=== PATIENT | male | born 1985 | race Caucasian/White ===

== ENCOUNTER 2020-11-19 11:32 | Outpatient (REF) | payer OTHER, SELFPAY ==
[2020-11-19 14:20] LABS: SARS COV2 PCR INHOUSE NEGATIVE (Negative)
== END 2020-11-19 11:33 | disposition home or self-care (01) ==
LOC: HO.LAB 11:32
PROVIDERS: Visit Provider Internal Medicine
DX: Z20.822 Contact with and (suspected) exposure to COVID-19 (principal)
CPT/HCPCS: C9803; U0003

== ENCOUNTER 2021-10-05 12:46 | Emergency (ER) | payer OTHER, SELFPAY ==
[2021-10-05 12:53] VITALS: BP 129/89; PULSE 85; RESP 18; TEMP 37; O2SAT 100; BMI 22.8
--- NOTE | 2021-10-05 13:40 | ED.EAR ---
HPI - Ear Problem General Chief complaint: Ear Problems Stated complaint: r ear pain Time Seen by Provider: 10/05/21 13:22 Source: patient Mode of arrival: ambulatory Limitations: no limitations History of Present Illness HPI Narrative: 36-year-old male presenting to the ED with complaints of right ear pain with associated nasal congestion/rhinorrhea. He reports that he feels like he has a sinus infection to the right Nare. He feels like his left Nare is normal. He reports that this started approximately 3 days ago. He reports that he was tested negative for COVID approximately 4 days ago and he is not concerned for COVID due to he has not been around anyone who has been sick and no one in his job has tested positive for COVID therefore he is declining any COVID testing today. He denies any fevers, chills, dizziness, headache, neck pain/stiffness, trouble swallowing or breathing, sore throat, loss of taste or smell, cough, chest pain or shortness of breath, nausea/vomiting/diarrhea constipation, abdominal pain, rashes, recent travel or sick contacts, recent antibiotic usage, recent swimming, recent illness, recent trauma, recent airplane flight or any other symptoms complaints or concerns at this time. MD Complaint: ear pain Location: right ear Duration: constant Severity: mild Relieving factors: nothing Exacerbating factors: nothing Discharge from ear: no Associated symptoms ear: rhinorrhea Treatment prior to arrival: none Related Data Previous Rx's Medication Instructions Recorded amoxicillin 875 mg-potassium 1 tab PO BID #10 tab 10/05/21 clavulanate 125 mg tablet Allergies Allergy/AdvReac Type Severity Reaction Status Date / Time pollen extracts [POLLEN] Allergy Unknown UNK Verified 10/05/21 12:53 Review of Systems Review of Systems: Constitutional : No Weight loss, No Fever, No Chills, No Night Sweats, No Fatigue, No Malaise ENT/Mouth : Positive nasal congestion/rhinorrhea and right-sided ear pain, No Hearing loss, No Sinus Pain, No Hoarseness, No Swallowing Difficulty Eyes: No Eye Pain, No Swelling, No Redness, No Foreign Body, No Discharge, No Vision Changes Cardiovascular : No Chest Pain, No SOB, No Dyspnea on Exertion, No Orthopnea, No Edema, No Palpitations Respiratory : No Cough, No Sputum, No Wheezing, No Smoke Exposure, No Dyspnea Gastrointestinal : No Nausea, No Vomiting, No Diarrhea, No Constipation, No abdominal Pain, No Hematochezia, No Melena Genitourinary : no irregular bleeding, No Dysuria, No Urinary Frequency, No Hematuria, No Urinary Incontinence, No Urgency, No Flank Pain, No Urinary Flow Changes, No Hesitancy Musculoskeletal : No joint pain, No Myalgias, No Joint Swelling Skin : No Skin Lesions, No rash Neuro : No Weakness, No Numbness, No Paresthesias, No Loss of Consciousness, No Dizziness, No Headache Psych : No Anxiety/Panic, No Depression, No SI/HI/AH/VH, No Social Issues, Heme/Lymph: No Bruising, No Bleeding,No Lymphadenopathy Endocrine : No Polyuria, No Polydipsia, No Temperature Intolerance Yes all other systems are reviewed and are negative [facility] Past Medical History Attestation statement: The following information was validated with the patient. Social History Social History Advance Directives: No Advance Directives Information Provided: Yes Physical Exam Vital Signs: Vital Signs: Last Vital Signs Temp 98.6 F 10/05/21 12:53 Pulse 85 10/05/21 12:53 Resp 18 10/05/21 12:53 BP 129/89 10/05/21 12:53 Pulse Ox 100 10/05/21 12:53 BMI result Body Mass Index 22.8 vital signs have been reviewed as normal and appeared to be correct. Blood pressure normal. Heart rate normal. Respiration rate normal. Temperature normal. Oxygen saturation normal. Appearance: Alert. Oriented X3. No acute distress. Head: Normal external exam. Normocephalic. Atraumatic. Eyes: PERRLA. EOMI. Conjunctiva and sclera normal. Eyelids normal. ENT: Right tympanic membrane mildly erythematous and bulging with loss of landmarks consistent with a mild otitis media. External ear canal bilaterally is within normal limits. Left tympanic membrane with some fluid and mild erythema and some bulging. No loss of Nare platt noted to the left tympanic membrane. Tympanic membranes bilaterally are intact not perforated. Posterior pharynx mildly erythematous although no exudate is noted. Otherwise the rest of the pharynx is within normal limits. Uvula midline. Moist mucous membranes. No trismus noted. No drooling noted. No muffled voice noted. Neck: Normal inspection. Neck supple. FROM. No adenopathy. Thyroid Normal. No meningeal signs. No neck mass noted. CVS: Normal heart rate and rhythm. Heart sound normal. Pulses normal throughout. No murmurs/rales/gallops. Respiratory: No respiratory distress. Painless inspiration. Breath sounds normal. No wheezes/rales/rhonchi noted. Chest nontender. No accessory muscle usage noted or decreased air movement noted. Back: Full range of motion noted. No rashes/lesion/induration/fluctuance or signs of infection noted. Skin: Skin warm and dry. Normal skin color. Normal skin turgor. No rashes/lesions/lacerations noted. Extremities: Extremities exhibit normal range of motion. Extremities nontender. Neuro: Oriented X 3. No motor deficit. No sensory deficit. Reflexes normal. Normal steady gait. No focal neuro deficits noted. CN's II-XII intact bilaterally? Vascular: + radial pulses/+ 2 distal pedal pulses/+2 dorsalis pedis b/l. Normal cap refill. No cyanosis noted to upper extremity nails and lower extremity toes nails. Course Course Course Narrative: 36-year-old male presenting to the ED with complaints of right ear pain with associated nasal congestion/rhinorrhea. He reports that he feels like he has a sinus infection to the right Nare. He feels like his left Nare is normal. He reports that this started approximately 3 days ago. He reports that he was tested negative for COVID approximately 4 days ago and he is not concerned for COVID due to he has not been around anyone who has been sick and no one in his job has tested positive for COVID therefore he is declining any COVID testing today. He denies any fevers, chills, dizziness, headache, neck pain/stiffness, trouble swallowing or breathing, sore throat, loss of taste or smell, cough, chest pain or shortness of breath, nausea/vomiting/diarrhea constipation, abdominal pain, rashes, recent travel or sick contacts, recent antibiotic usage, recent swimming, recent illness, recent trauma, recent airplane flight or any other symptoms complaints or concerns at this time. On exam patient has a mild right otitis media due to pain and symptoms will DC home antibiotics. I tried to convince the pain she had to be tested for COVID due to his nasal congestion/rhinorrhea ear pain although he declined multiple times see note above. Otherwise will DC home antibiotics instructions return if any new or worsening symptoms to follow up with primary care provider. Patient understands agrees with this plan. [facility] - Ear Medical Records Attestation: I reviewed the patient's medical records. Discharge Plan Discharge Clinical Impression: Otitis media Patient Disposition: Home, Self-Care Instructions: Ear Infection (ED) Prescriptions: New amoxicillin-pot clavulanate 875-125 mg tablet 1 tab PO BID Qty: 10 0RF Referrals: Physician,Unknown J [Primary Care Provider] - 2 days (Your PCP) Stand Alone Forms: Work/School Release Print Language: Telugu
== END 2021-10-05 13:48 | disposition home or self-care (01) ==
PROVIDERS: Emergency Provider Emergency Medicine
DX: H66.91 Otitis media, unspecified, right ear (principal)
CPT/HCPCS: 99283

== ENCOUNTER 2022-01-23 22:48 | Emergency (ER) | payer OTHER, SELFPAY ==
[2022-01-23 23:56] VITALS: BP 141/89; PULSE 82; RESP 16; TEMP 37.2; O2SAT 99; BMI 21.2
[2022-01-24 01:46] VITALS: BP 111/70; PULSE 56; RESP 16; TEMP 36.7; O2SAT 98
[2022-01-24 01:54] LABS: Strep A Nucleic Acid Negative (Negative)
[2022-01-24 02:18] LABS: COVID-19 Test Negative (Negative); IDNOW Serial# 55D5AD1C
--- NOTE | 2022-01-24 02:22 | ED.GENADULT ---
HPI - General Adult General Chief complaint: General Medical Stated complaint: sore throat, congestion Time Seen by Provider: 01/24/22 01:05 History of Present Illness HPI narrative: Patient is 36 years old presents today with having sore throat. Patient is also having congestion upper respiratory symptoms. Was seen by ENT in the past. Symptoms redevelop over the last 3 days. Denies any coughing . Positive congestion positive generalized malaise. No changes in voice. No changes difficulties in swallowing. Patient is from home. Patient immunized for COVID Related Data Previous Rx's Medication Instructions Recorded amoxicillin 875 mg-potassium 1 tab PO BID #10 tab 10/05/21 clavulanate 125 mg tablet Allergies Allergy/AdvReac Type Severity Reaction Status Date / Time pollen extracts [POLLEN] Allergy Unknown UNK Verified 10/05/21 12:53 Review of Systems Review of Systems: No fever no chills positive sore throat positive aches PMFSH Past Medical History Attestation statement: The following information was validated with the patient. Social History Social History Advance Directives: No Advance Directives Information Provided: No Physical Exam ED Vital Signs: Vital Signs - 24 hr 01/23/22 23:56 01/24/22 01:46 Temperature 98.9 F 98.1 F Pulse Rate 82 56 Respiratory Rate 16 16 Blood Pressure 141/89 H 111/70 Pulse Oximetry 99 98 BMI result Body Mass Index 21.2 Appearance: Alert. Oriented X3. No acute distress. Eyes: Pupils equal, round and reactive to light. ENT: Pharynx normal. There is no erythema noted posteriorly. Tonsils not enlarged. TMs intact bilaterally. There is no erythema noted. Neck: Normal inspection. Neck supple. No lymph nodes noted. No crepitus CVS: Normal heart rate and rhythm. Pulses normal. Normal S1 and S2 Respiratory: No respiratory distress. Breath sounds normal. No Wheezing. No rales Abdomen: Soft and nontender. No rigidity. No distention. good BS x4 Skin: Skin warm and dry. Normal skin color. Normal skin turgor. Extremities: No lower extremity edema. Neurovascular intact to all extremities. No Lacerations. No Rash Neuro: Oriented X 3. No motor deficit. No sensory deficit. Moving all extermities. No slurred speech Medical Decision Making MDM Narrative Medical decision making narrative: Patient's exam was normal in the emergency department. Rapid strep was negative COVID test was negative. No distress. Will have patient follow-up with ENT on an outpatient basis for his sore throat. Congestion. In stable condition. Lab Data Labs: Lab Results 01/24/22 01/24/22 Range/Units 01:39 01:39 COVID-19 (KARIN) Negative (Negative) COVID-19 Clin Com See Note S. pyogenes GrpA FAM Negative (Negative) Discharge Plan Discharge Clinical Impression: Congestion of throat Patient Disposition: Home, Self-Care Instructions: Pharyngitis (ED) Prescriptions: No Action amoxicillin-pot clavulanate 875-125 mg tablet 1 tab PO BID Qty: 10 0RF Referrals: Physician,Unknown J [Primary Care Provider] - (Please follow-up with ENT doctor on an outpatient basis)
--- NOTE | 2022-01-24 02:44 | PC.NURSE ---
pt left with out discharge paper work. provider is aware.
== END 2022-01-24 02:44 | disposition home or self-care (01) ==
PROVIDERS: Emergency Provider Emergency Medicine Emergency Medical Services
DX: J02.9 Acute pharyngitis, unspecified (principal); Z20.822 Contact with and (suspected) exposure to COVID-19; R53.81 Other malaise
CPT/HCPCS: 87635; 87651; 99283

== ENCOUNTER 2025-07-30 20:32 | Emergency (ER) | payer OTHER, SELFPAY ==
[2025-07-30 20:36] VITALS: BP 118/72; PULSE 74; O2SAT 98
[2025-07-30 20:37] VITALS: BP 139/70; PULSE 62; RESP 16; TEMP 36.6; O2SAT 99; BMI 22.7
[2025-07-30 21:09] LABS: MANUAL DIFF FLAG NO
[2025-07-30 21:10] LABS: Hematocrit 44.2 % (42.0-52.0); Hemoglobin 14.9 g/dl (14.0-18.0); Imm Gran Abs Auto 0.06 X10*3/uL (0.00-0.03); Imm Gran Pct Auto 0.4 % (0.0-0.4); Lymphocytes Absolute Auto 2.1 X10*3/uL (1.2-4.9); Mean Corpuscular HGB Conc 33.7 g/dl (31.0-36.0); Mean Corpuscular Hemoglobin 28.4 pg (27.0-33.0); Mean Corpuscular Volume 84.2 fL (80.0-98.0); NRBC Abs Auto 0.000 X10*3/uL (0.0-0.012); NRBC Pct Auto 0.0 /100WBC (0.0-0.2); Platelet Count 302 X10*3/uL (160-400); Red Blood Count 5.25 X10*6/uL (4.60-5.80); White Blood Count 14.3 X10*3/uL (4.8-10.8)
[2025-07-30 21:25] LABS: Alanine Aminotransferase 13 U/L (0-40); Albumin Level 4.8 g/dL (3.5-5.0); Alkaline Phosphatase 60 U/L (39-117); Anion Gap 15 (12-20); Aspartate Amino Transferase 21 U/L (5-37); Blood Urea Nitrogen 22 mg/dL (9-16); Calcium 9.9 mg/dL (8.4-10.2); Carbon Dioxide 24 mmol/L (22-29); Chloride 105 mmol/L (96-108); Creatinine Clr Calc Pharmacy 98.1; Estimated Glomerular Filt Rate > 60; Potassium 4.4 mmol/L (3.3-5.1); Sodium 140 mmol/L (135-145); Total Protein 7.9 g/dL (6.5-8.0)
--- OUTSIDE RECORDS SUMMARY | 2025-07-31 01:07 | XMS_ITS | Encounter Summary ---
Author Organization [facility] Address [address] [place] [address] Care Team Providers Care Glass Furnace Tender Name Role Phone Floyd Martinez MD Primary Care Provider [phone] Encounter Details Date Type Department Care Team (Late Contact Info) Description 05/28/2025 Results Follow-Up Infectious Disease - [place] [address] [facility] [address] [place] [address] Zaynab Luis RN Social History Tobacco Use Types Packs/Day Years Used Date Smoking Tobacco: Every Day Cigarettes Smokeless Tobacco: Never Alcohol Use Standard Drinks/Week Comments No 0 (1 standard drink = 0.6 oz pur e alcohol) Sex and Gender Information Value Date Recorded Sex Assigned at Not on file Legal Sex Male 4:51 AM EST Gender Identity Not on file Sexual Orientation Not on file documented as of this encounter Progress Notes * Zaynab Luis RN - 05/28/2025 4:26 PM EDT Patient notified. documented in this encounter Plan of Treatment Upcoming Encounters Date Type Department Care Team (Late Contact Info) Description 08/27/2025 1:00 PM EST Office Visit Infectious Disease - [place] [address] [facility] [address] [place] [id number] Radha Rosenberg MD [address] [facility] [address] [place] [address] documented as of this encounter Visit Diagnoses Not on filedocumented in this encounter Care Teams Glass Furnace Tender Relationship Specialty Start Date End Date Floyd Martinez MD [address] [place] [phone] PCP - General Internal Medicine 08/05/24 documented as of this encounter
--- OUTSIDE RECORDS SUMMARY | 2025-07-31 01:07 | XMS_ITS | Clinical Summary ---
Author Organization [facility] Address [address] [place] [address] Phone Care Team Providers Care Program Director [employer] Name Role Phone Pcp, Unknown Primary Care Provider Unavailabl e Social History Tobacco Use Types Packs/Day Years Used Date Smoking Tobacco: Never Assessed Education Answer Date Recorded Are you interested in more education? Not on yola e 12/16/2022 Are you concerned about learning? Not on file 12/16/2022 No 12/16/2022 No 12/16/2022 Digital Access Answer Date Recorded No 01/17/2023 No 01/17/2023 Reliable internet access at home? Not on file 01/17/2023 Device with a working camera? Not on file Sex and Gender Information Value Date Recorded Sex Assigned at Not on file Legal Sex Male 11:45 AM EST Gender Identity Not on file Sexual Orientation Not on file Plan of Treatment Not on file Medical Devices Not on file Insurance [place] [address] [employer] [place] [address] [facility] [address] [place] [address] [facility] [place] [address] [employer] [facility] [address] [place] [address] [facility] [address] [place] [address] [facility] [place] [address] [facility] [place] [id number] Care Teams Program Director [employer] Tal[employer] Relationship Specialty Start Date End Date Pcp, Unknown PCP - General 07/31/20 Additional Source Comments The information contained in this document represents components of the legal health record. It is not the complete legal health record.[facility]
--- OUTSIDE RECORDS SUMMARY | 2025-07-31 01:07 | XMS_ITS | Clinical Summary ---
Author Organization 175 [facility] Address [address] [place] [address] Phone Care Team Providers Care Car Scrubber Name Role Phone Floyd Martinez MD Primary Care Provider [phone] Allergies No known active allergies Medications fluticasone propionate (FLONASE) 50 mcg/actuation nasal spray Administer 1 spray into affected nostril(s) 2 (two) times a day. 2 Active hydrocortisone 2.5 % cream Apply to affected area bid 4 Active emtricitabine-t enofovir disoproxil fumarate (TRUVADA) 200-300 mg per tablet Take 1 tablet by mouth 1 (one) time each day. 90 tablet 1 5 Active doxycycline hyclate (VIBRA-TABS) 100 mg tablet Take with a full glass of water and do not lie down for at least 30 minutes after. Take 2 pills within 24 hours of a sexual encounter 10 each 2 5 Active Active Problems Problem Noted Date Diagnosed Date Allergic rhinitis 01/06/2020 Globus sensation 01/06/2020 Anxiety 11/19/2019 Tobacco dependence 11/19/2019 Encounters Date Type Department Care Team Description 07/04/2025 Results Follow-Up Infectious Disease - [place] [address] [facility] [address] [place] [address] Zaynab Luis RN 07/02/2025 12:00 PM EST Lab Draw Station - [facility] [address] [facility] [address] [place] [address] Encounter for HIV pre-exposure prophylaxis 05/28/2025 Results Follow-Up Infectious Disease [facility] [address] [facility] [address] [place] [phone] Zaynab Luis RN 05/27/2025 1:00 PM EDT Office Visit [facility] [address] [facility] [address] [place] [phone] Radha Rosenberg MD Encounter for HIV pre-exposure prophylaxis (Primary Dx); History of syphilis 05/15/2025 Telephone [facility] [address] [facility] [address] [place] [phone] Radha Rosenberg MD 05/06/2025 11:00 AM EDT Lab Draw Station [address] [phone] Encounter for prescription of pre-exposure prophylaxis for HIV; Late latent syphilis from Last 3 Months Surgical History Surgery Date Site/Laterality Comments OTHER SURGICAL HISTORY PROCEDURE: DENIES PREVIOUS SURGERY Medical History Medical History Date Comments Allergic rhinitis 01/06/2020 DX:Allergic rh initis Anxiety 11/19/2019 DX:Anxiety Globus sensation 01/06/2020 DX:Globus sensa tion Tobacco dependence 11/19/2019 DX:Tobacco de pendence Family History Medical History Relation Name Comments Other: STD Father unclear why he No Known Problems Maternal Grandfather Diabetes Maternal Grandmother Other: borderline diabetes Mother No Known Problems Paternal Grandfather No Known Problems Paternal Grandmother No Known Problems Sister Other: autism Son 15yo as of Relation Name Status Comments Father Maternal Grandfather Maternal Grandmother Mother Alive Paternal Grandfather Paternal Grandmother Sister Alive Son Alive Social History Tobacco Use Types Packs/Day Years Used Date Smoking Tobacco: Every Day Cigarettes Smokeless Tobacco: Never Tobacco Cessation:Ready to Q uit: Not Asked; Counseling Given: Not Answered Alcohol Use Standard Drinks/Week Comments No 0 (1 standard drink = 0.6 oz pur e alcohol) Sex and Gender Information Value Date Recorded Sex Assigned at Not on file Legal Sex Male 4:51 AM EST Gender Identity Not on file Sexual Orientation Not on file Last Filed Vital Signs Vital Sign Reading Time Taken Comments Blood Pressure 128/80 05/27/2025 1:12 PM EDT Pulse 85 05/27/2025 1:12 PM EDT Temperature 36.8 C (98.3 F) 05/27/2025 1:12 PM EDT Respiratory Rate - - Oxygen Saturation 98% 05/27/2025 1:12 PM EDT Inhaled Oxygen Concentration - - Weight 63 kg (139 lb) 05/27/2025 1:12 PM EDT Height 170.2 cm (5' 7 ) 06/20/2024 3:49 PM EDT Body Mass Index 21.77 06/20/2024 3:49 PM EDT Plan of Treatment Upcoming Encounters Date Type Department Care Team (Late st Contact Info) Description 08/27/2025 1:00 PM EST Office Visit Infectious Disease - [place] [address] [facility] [address] [place] [phone] Radha Rosenberg MD [address] [facility] [address] [place] [address] Health Maintenance Due Date Last Done Comments DTaP,Tdap,and Td Vaccines (1 - Tdap) 2005 Hepatitis B Vaccines (1 of 3 - 19+ 3-dose series) 2005 Pneumococcal Vaccine: Pediatrics (0 to 5 Years) and At-Risk Patients (6 to 49 Years) (1 of 2 - PCV) 2005 HPV Vaccines (1 - 3-dose SCDM series) 2013 Social Influencers of Health Screening 07/30/2022 Depression Screening 08/21/2024 COVID-19 Vaccine ( - season) 2025 Influenza Vaccine (#1) 2025 Cholesterol Screening (Lipid Panel) 06/19/2028 06/19/2023, 06/19/2023 RSV Immunization Adult Patients (1 - 1-dose 75+ series) 2061 Hepatitis C Screening Completed 05/27/2025 , 02/19/2025, 11/20/2024, Additional history exists HIV Screening Completed 07/02/2025, 04/21, 02/27/2025, Additional history exists HIB Vaccines Aged Out No longer eligi ble based on patient's age to complete this topic Hepatitis A Vaccines Aged Out No long er eligible based on patient's age to complete this topic IPV Vaccines Aged Out No longer eligi ble based on patient's age to complete this topic MMR Vaccines Aged Out No longer eligi ble based on patient's age to complete this topic Meningococcal ACWY Vaccine Aged Out N o longer eligible based on patient's age to complete this topic Meningococcal B Vaccine Aged Out No l onger eligible based on patient's age to complete this topic RSV Immunization Patients Under 20 months Aged Out No longer eligible based on patient's age to complete this topic Varicella Vaccines Aged Out No longer eligible based on patient's age to complete this topic Procedures Procedure Name Priority Date/Time Associated Diagnosis Comments HIV 1, 2 ANTIBODY, P24 ANTIGEN WITH REFLEX TO DIFFERENTIATION Routine 07/02/2025 12:06 PM EST Encounter for HIV pre-exposure prophylaxis RAPID PLASMA REAGIN TITER Routine 05/27/2025 1:45 PM EDT History of syphilis RAPID PLASMA REAGIN WITH REFLEX TO TITER Routine 05/27/2025 1:45 PM EDT History of syphilis HEPATITIS C ANTIBODY Routine 05/27/2025 1:45 PM EDT Encounter for HIV pre-exposure prophylaxis History of syphilis TREPONEMA PALLIDUM ANTIBODY WITH REFLEX TO RPR AND PARTICLE AGGLUTINATION Routine 05/27/2025 1:45 PM EDT History of syphilis TRICHOMONAS, URINE Routine 05/27/2025 1: 45 PM EDT Encounter for HIV pre-exposure prophylaxis History of syphilis CHLAMYDIA TRACHOMATIS AND NEISSERIA GONORRHOEAE PCR Routine 05/27/2025 1:45 PM EDT Encounter for HIV pre-exposure prophylaxis History of syphilis HIV 1, 2 ANTIBODY, P24 ANTIGEN WITH REFLEX TO DIFFERENTIATION Routine 05/06/2025 10:59 AM EDT Encounter for prescription of pre-exposure prophylaxis for HIV COMPREHENSIVE METABOLIC PANEL Routine 05/06/2025 10:59 AM EDT Encounter for prescription of pre-exposure prophylaxis for HIV Late latent syphilis LIPID PANEL Routine 06/19/2023 from Last 3 Months or Most Recently Relevant to Health Maintenance Results * HIV 1,2 antibody, p24 antigen with reflex to differentiation (07/02/2025 12:06 PM EST) Only the most recent of2 resultswithin the time period is included. HIV Combo AB/AG Negative Negative LAB CHEMISTRY METHOD 07/02/2025 5:03 PM EST [facility] Blood Venous blood specimen / Unknown Venipuncture / Unknown 07/02/2025 12:06 PM EST 07/02/2025 12:06 PM EST Narrative [facility] - 07/02/2025 5:03 PM EST This assay is a 4th generation assay allowing for earlier detection of HIV infection by detecting the presence of the HIV-1 p24 antigen as well as the traditional antibodies to HIV type 1 (including group O) and type 2. Use of a 4th generation assay is the current CDC recommendation for HIV screening. us Radha Rosenberg MD LAB BLOOD ORDERABLES Final Resul t Performing Organization Address City/[facility]/ZIP Co de Phone Number [facility] [address] [place] [address], [place] [phone] * Hepatitis C antibody (05/27/2025 1:45 PM EDT) Hepatitis C Antibody Negative Negative LAB CHEMISTRY METHOD 05/27/2025 7:38 PM EDT [facility] Blood Venous blood specimen / Unknown Venipuncture / Unknown 05/27/2025 1:45 PM EDT 05/27/2025 1:45 PM EDT us Radha Rosenberg MD LAB BLOOD ORDERABLES Final Resul t [facility] [address] [place] [address], [place] [phone] * (ABNORMAL) Treponema pallidum antibody with reflex to RPR and particle agglutination (05/27/2025 1:45 PM EDT) T. Pallidum Antibodies Positive( A) Negative LAB CHEMISTRY METHOD 05/27/2025 7:09 PM EDT [facility] Blood Venous blood specimen / Unknown Venipuncture / Unknown 05/27/2025 1:45 PM EDT 05/27/2025 1:45 PM EDT us Radha Rosenberg MD LAB BLOOD ORDERABLES Final Resul t Performing Organization Address City/[facility]/ZIP Co de Phone Number [facility] [address] [place] [address], [place] [phone] * (ABNORMAL) Rapid plasma reagin titer (05/27/2025 1:45 PM EDT) Pathologist [facility] Rapid Plasma Reagin Titer 1:2(A) Nonreactive 05/28/2025 9:20 AM EDT [facility] Blood Venous blood specimen / Unknown Venipuncture / Unknown 05/27/2025 1:45 PM EDT 05/27/2025 7:09 PM EDT us Radha Rosenberg MD LAB BLOOD ORDERABLES Final Resul t Performing Organization Address City/[facility]/ZIP Co de Phone Number [facility] [address] [place] [address], [place] [phone] * (ABNORMAL) Rapid plasma reagin with reflex to titer (05/27/2025 1:45 PM EDT) RPR Reactive(A ) Nonreactive 05/28/2025 9:19 AM EDT [facility] Blood Venous blood specimen / Unknown Venipuncture / Unknown 05/27/2025 1:45 PM EDT 05/27/2025 7:09 PM EDT us Radha Rosenberg MD LAB BLOOD ORDERABLES Final Resul t Performing Organization Address City/[facility]/ZIP Co de Phone Number [facility] [address] [place] [address], [place] [phone] * Trichomonas, urine (05/27/2025 1:45 PM EDT) Trichomonas, Urine None Seen None Seen 05/27/2025 6:53 PM EDT [facility] Urine Urine specimen obtained by clean catch procedure / Unknown Non-blood Collection / Unknown 05/27/2025 1:45 PM EDT 05/27/2025 1:45 PM EDT us Radha Rosenberg MD LAB MICROBIOLOGY - GENERAL ORDER LEONARD Final Result Performing Organization Address [facility]/ZIP Co de Phone Number [facility] [address] [place] [address], [place] [phone] * Chlamydia trachomatis and Neisseria gonorrhoeae molecular study (05/27/2025 1:45 PM EDT) [facility] Neisseria gonorrhoeae PCR Negative Negative LAB MOLECULAR DIAGNOSTICS METHOD 05/28/2025 10:54 AM EDT [facility] Chlamydia trachomatis PCR Negative Negative LAB MOLECULAR DIAGNOSTICS METHOD 05/28/2025 10:54 AM EDT [facility] Urine Urine specimen obtained by clean catch procedure / Unknown Non-blood Collection / Unknown 05/27/2025 1:45 PM EDT 05/27/2025 1:45 PM EDT us Radha Rosenberg MD LAB MICROBIOLOGY - GENERAL ORDER LEONARD Final Result Performing Organization Address City/[facility]/ZIP Co de Phone Number [facility] [address] [place] [address], [place] [phone] * (ABNORMAL) Comprehensive metabolic panel (05/06/2025 10:59 AM EDT) Pathologist [facility] Sodium 138 133 - 145 mmol/L LAB CHEMISTRY METHOD 05/06/2025 4:32 PM [facility] Potassium 4.3 3.5 - 5.5 mmol/L LAB CHEMISTRY METHOD 05/06/2025 4:32 PM [facility] Chloride 106 96 - 110 mmol/L LAB CHEMISTRY METHOD 05/06/2025 4:32 PM [facility] CO2 26 21 - 32 mmol/L LAB CHEMISTRY METHOD 05/06/2025 4:32 PM [facility] Anion Gap 6 3 - 11 LAB CHEMISTRY METHOD 05/06/2025 4:32 PM [facility] Glucose 102(H) 70 - 100 mg/dL LAB CHEMISTRY METHOD 05/06/2025 4:32 PM [facility] BUN 19 5 - 25 mg/dL LAB CHEMISTRY METHOD 05/06/2025 4:32 PM [facility] Creatinine 1.01 0.70 - 1.30 mg/dL LAB CHEMISTRY METHOD 05/06/2025 4:32 PM [facility] eGFR 97 >=60 mL/min/1. 73m2 LAB CHEMISTRY METHOD 05/06/2025 4:32 PM [facility] Comment:Calculation based on the Chronic Kidney Disease Epidemiology Collaboration (CKD-EPI) equation refit without adjustment for race. BUN/Creatinine Ratio 18.8 LAB CHEMISTRY METHOD 05/06/2025 4:32 PM [facility] Calcium 9.4 8.5 - 10.5 mg/dL LAB CHEMISTRY METHOD 05/06/2025 4:32 PM [facility] AST (SGOT) 15 10 - 42 unit/L LAB CHEMISTRY METHOD 05/06/2025 4:32 PM [facility] ALT (SGPT) 18 10 - 60 unit/L LAB CHEMISTRY METHOD 05/06/2025 4:32 PM [facility] Alkaline Phosphatase 61 42 - 121 unit/L LAB CHEMISTRY METHOD 05/06/2025 4:32 PM EDT [facility] Total Protein 7.5 6.0 - 8.0 g/dL LAB CHEMISTRY METHOD 05/06/2025 4:32 PM EDT [facility] Albumin 4.4 3.2 - 5.0 g/dL LAB CHEMISTRY METHOD 05/06/2025 4:32 PM EDT [facility] Total Bilirubin 0.6 0.0 - 1.4 mg/dL LAB CHEMISTRY METHOD 05/06/2025 4:32 PM EDT [facility] Blood Venous blood specimen / Unknown Venipuncture / Unknown 05/06/2025 10:59 AM EDT 05/06/2025 10:59 AM EDT Radha Rosenberg MD LAB BLOOD ORDERABLES Final Resul t [facility] [address] [place] [address], [place] [phone] * Lipid panel (06/19/2023) LDL/HDL Ratio 3 0 - 4 Triglycerides 71 0 - 150 mg/dL Cholesterol 176 0 - 200 mg/dL HDL 69 >=40 mg/dL LDL Cholesterol 93 0 - 100 mg/dL Blood Venous blood specimen / Unknown [facility] Provider LAB BLOOD ORDERABLES Nancy l Result from Last 3 Months or Most Recently Relevant to Health Maintenance Insurance [place]ICA[place] - [place] [facility] Care Teams Car Scrubber Relationship Specialty Start Date End Date Floyd Martinez MD [address] [place] [phone] PCP - General Internal Medicine 08/05/24
--- OUTSIDE RECORDS SUMMARY | 2025-07-31 01:07 | XMS_ITS ---
Author Name [facility] Organization Unknown Care Team Organization Name Specialty Phone Email Start Date End Da te [facility] ABBY SARABIA Primary Care 04/27/2023 [facility] Keith Cardoso DO Primary Care 10/26/202203/21 [facility] NULL Primary Care 06/28/2022 04/08/2024
--- OUTSIDE RECORDS SUMMARY | 2025-07-31 01:07 | XMS_ITS | Encounter Summary ---
Author Organization [facility] Address [address] [place] [address] Care Team Providers Care Credit Union Teller Name Role Phone Floyd Martinez MD Primary Care Provider [phone] Encounter Details Date Type Department Care Team (Late st Contact Info) Description 07/04/2025 Results Follow-Up Infectious Disease - [place] [address] [address] Zaynab Luis RN Social History Tobacco Use [...] Progress Notes * Zaynab Luis RN - 07/04/2025 9:04 AM EST Patient aware. documented in this encounter Plan of Treatment Upcoming Encounters Date Type Department Care Team (Late st Contact Info) Description 08/27/2025 1:00 PM EST Office Visit Infectious Disease - [place] [address] [phone] Radha Rosenberg MD [address] [address] documented as of this encounter Visit Diagnoses Not on filedocumented in this encounter Care Teams Credit Union Teller Relationship Specialty Start Date End Date Floyd Martinez MD [address] [place] [phone] PCP - General Internal Medicine 08/05/24 documented as of this encounter
== END 2025-07-30 22:58 | disposition left against medical advice (07) ==
LOC: HO.ED 22:23
PROVIDERS: Emergency Provider Emergency Medicine
DX: R10.31 Right lower quadrant pain (principal); Z53.21 Procedure and treatment not carried out due to patient leaving prior to being seen by health care provider
CPT/HCPCS: 36415; 80053; 85025; 99281